=== PATIENT | female | born 1945 | race Two or more races ===

== ENCOUNTER 2019-09-01 14:38 | Emergency (ER) | payer MEDICARE, BC ==
[~2019-09-01] VITALS: Ht 160 cm; Wt 63.5 kg
--- NOTE | 2019-09-01 14:50 | Emergency Room Report ---
History of Present Illness General Chief Complaint: Dizziness Source: Patient Present Illness HPI Is a 73-year-old female who presents after increased dizziness. Has been having increased vertigo sensation worse with movement. Had onset of symptoms 2 days ago. Patient has been able to ambulate earlier in the day. She has been previously having episodes of nausea and vomiting. This had worsened while being examined by physician Dr. Vega. Denies any hematemesis. Denies any recent trauma. Patient been having some abdominal discomfort. Allergies: Coded Allergies: No Known Allergies (Unverified , 09/01/19) Patient History Past Medical History: see triage record Now: No Reviewed Nursing Documentation: PMH: Agreed; PSxH: Agreed Review of Systems All Other Systems: negative except mentioned in HPI Physical Exam Vital Signs Date Time Temp Pulse Resp B/P (MAP) Pulse Ox O2 Delivery O2 Flow Rate FiO2 09/01/19 14:30 98.4 77 16 107/73 (84) 98 Room Air Sp02 EP Interpretation: reviewed, normal General Appearance: normal inspection, well appearing, no apparent distress, alert, GCS 15 Head: atraumatic ENT: normal ENT inspection, hearing grossly normal, normal voice Neck: normal inspection, full range of motion, supple, no bony tend Respiratory: normal inspection, lungs clear, normal breath sounds, no respiratory distress, no retraction, no wheezing Cardiovascular #1: regular rate, rhythm, no edema Gastrointestinal: normal inspection, normal bowel sounds, non tender, soft, no guarding, no hernia Genitourinary: no CVA tenderness Musculoskeletal: normal inspection, back normal, normal range of motion Neurologic: alert, motor strength/tone normal, engraver rubber III-XII nml as tested, distal neuro normal, oriented x3, responsive, speech normal, no pronator, normal inspection, other - Nystagmus Psychiatric: normal inspection, judgement/insight normal, mood/affect normal Medical Decision Making Diagnostic Impression: Primary Impression: Vertigo 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 Differential diagnosis included was not limited to CVA, vertebrobasilar insufficiency, myocardial infarction, benign positional vertigo, labyrinthitis, aspirin overdose among others. Because of complexity of patient's case laboratory tests and imaging studies were ordered.Patient was noted to have improvement in symptoms after medications. CT imaging showed old lacunar infarct of the cerebellum. all laboratory findings and testing was discussed with the patient's family and patient states that she wishes to leave the hospital. Patient does not appear to be in any acute distress and laboratory testing was unremarkable. Patient's patient was advised to return if she had any worsening of condition or other concerns. Patient was advised that her CT she did show some prior cerebellar infarct and that she should have MRI performed. The patient is advised to follow up with primary care doctor in 1-2 days. Patient is advised to return if any worsening condition or if any changes in status that are concerning. This report is dictated with [employer] software which may occasionally lead to discrepancies related to use of this software. Labs Test 09/01/19 14:40 White Blood Count 8.0 K/UL (4.8-10.8) Red Blood Count 4.41 M/UL (4.20-5.40) Hemoglobin 13.5 G/DL (12.0-16.0) Hematocrit 38.8 % (37.0-47.0) Mean Corpuscular Volume 88 FL (80-99) Mean Corpuscular Hemoglobin 30.7 PG (27.0-31.0) Mean Corpuscular Hemoglobin Concent 34.9 G/DL (32.0-36.0) Red Cell Distribution Width 10.4 % (11.6-14.8) Platelet Count 177 K/UL (150-450) Mean Platelet Volume 8.7 FL (6.5-10.1) Neutrophils (%) (Auto) 75.9 % (45.0-75.0) Lymphocytes (%) (Auto) 17.8 % (20.0-45.0) Monocytes (%) (Auto) 5.4 % (1.0-10.0) Eosinophils (%) (Auto) 0.1 % (0.0-3.0) Basophils (%) (Auto) 0.8 % (0.0-2.0) Sodium Level 143 MMOL/L (136-145) Potassium Level 3.7 MMOL/L (3.5-5.1) Chloride Level 105 MMOL/L (98-107) Carbon Dioxide Level 24 MMOL/L (21-32) Anion Gap 14 mmol/L (5-15) Blood Urea Nitrogen 10 mg/dL (7-18) Creatinine 0.7 MG/DL (0.55-1.30) Estimat Glomerular Filtration Rate > 60 mL/min (>60) Glucose Level 144 MG/DL (74-106) Calcium Level 9.2 MG/DL (8.5-10.1) Total Bilirubin 0.8 MG/DL (0.2-1.0) Aspartate Amino Transf (AST/SGOT) 24 U/L (15-37) Alanine Aminotransferase (ALT/SGPT) 33 U/L (12-78) Alkaline Phosphatase 46 U/L (46-116) Troponin I 0.018 ng/mL (0.000-0.056) Total Protein 6.6 G/DL (6.4-8.2) Albumin 3.6 G/DL (3.4-5.0) Globulin 3.0 g/dL Albumin/Globulin Ratio 1.2 (1.0-2.7) Thyroid Stimulating Hormone (TSH) 0.991 uiU/mL (0.358-3.740) Last Vital Signs Date Time Temp Pulse Resp B/P (MAP) Pulse Ox O2 Delivery O2 Flow Rate FiO2 09/01/19 14:30 98.4 77 16 107/73 (84) 98 Room Air Status: improved Disposition: HOME, SELF-CARE Condition: Stable Scripts Meclizine Hcl* (MECLIZINE*) 25 Mg Tablet 25 MG ORAL THREE TIMES A DAY, #20 TAB Prov: Guero Razo MD 09/01/19 Ondansetron Odt* (ZOFRAN ODT*) 4 Mg Tab.rapdis 4 MG BC EVERY 6 HOURS PRN for Nausea & Vomiting, #10 TAB 0 Refills Prov: Guero Razo MD 09/01/19 Guero Razo MD Sep 01, 2019 14:50
[2019-09-01] MEDS ORDERED: Meclizine 25mg tab ORAL ONE (15:00)
[2019-09-01 15:03] LABS: BASOPHILS % (AUTO) 0.8 % (0.0-2.0); EOSINOPHILS % (AUTO) 0.1 % (0.0-3.0); HEMATOCRIT 38.8 % (37.0-47.0); HEMOGLOBIN 13.5 G/DL (12.0-16.0); LYMPHOCYTES % (AUTO) 17.8 % (20.0-45.0); MEAN CORPUSCULAR VOLUME 88 FL (80-99); MONOCYTES % (AUTO) 5.4 % (1.0-10.0); NEUTROPHILS % (AUTO) 75.9 % (45.0-75.0); PLATELET COUNT 177 K/UL (150-450); RED BLOOD COUNT 4.41 M/UL (4.20-5.40); RED CELL DISTRIBUTION WIDTH 10.4 % (11.6-14.8)
[2019-09-01 15:04] VITALS: BP 107/73
--- NOTE | 2019-09-01 15:04 | NUR ---
brought in by rescue from home with complaints of dizziness with nausea no vomiting
--- NOTE | 2019-09-01 15:15 | NUR ---
ED Nurse Note: Pt received from [facility] charge [facility]. pt is resting in bed with family at bedside. No acute distress noted. Will continue to monitor.
[2019-09-01 15:16] LABS: ANION GAP 14 mmol/L (5-15); BLOOD UREA NITROGEN 10 mg/dL (7-18); CALCIUM 9.2 MG/DL (8.5-10.1); CARBON DIOXIDE 24 MMOL/L (21-32); CHLORIDE 105 MMOL/L (98-107); CREATININE 0.7 MG/DL (0.55-1.30); POTASSIUM 3.7 MMOL/L (3.5-5.1); SODIUM 143 MMOL/L (136-145)
[2019-09-01 15:29] LABS: ALANINE AMINOTRANSFERASE 33 U/L (12-78); ALBUMIN 3.6 G/DL (3.4-5.0); ALBUMIN/GLOBULIN RATIO 1.2 (1.0-2.7); ALKALINE PHOSPHATASE 46 U/L (46-116); ASPARTATE AMINO TRANSFERASE 24 U/L (15-37); BILIRUBIN,TOTAL 0.8 MG/DL (0.2-1.0)
--- NOTE | 2019-09-01 15:47 | Diagnostic Imaging Report ---
. Indications: Headache and dizziness Technique: Spiral acquisitions obtained through the brain. Angled axial and coronal 5 x 5 mm slices were reconstructed. Total dose length product 1018 mGycm. CTDI vol(s) 53 mGy. Dose reduction achieved using automated exposure control Comparison: None. Findings: There is very mild age-related enlargement of ventricles and extra axial CSF spaces. No acute intercranial hemorrhage or edema. No mass effect nor midline shift. There is a small old left cerebellar hemispheric cortical infarct demonstrated. Old deep white matter infarct is seen in the left posterior parietal deep white matter. Gan-white differentiation is normal. The mastoids are clear. Size orbits and sinuses are unremarkable. Impression: Mild age-related changes, as described Old lacunar infarcts, as described Negative for acute intracranial bleed or mass effect The CT scanner at [facility] is accredited by the [employer] and the scans are performed using protocols designed to limit radiation exposure to as low as reasonably achievable to attain images of sufficient resolution adequate for diagnostic evaluation.
[2019-09-01] MEDS ORDERED: MECLIZINE HCL25 MG ORAL (16:49)
[2019-09-01] MEDS ORDERED: ONDANSETRON ODT4 MG BC (16:49)
[2019-09-01 17:15] VITALS: BP 110/82
--- NOTE | 2019-09-01 17:15 | NUR ---
ER DISCHARGE NOTE: Patient is cleared to be discharged per ERMD, pt is aox4, on room air, with stable vital signs. pt was given dc and prescription instructions, pt was able to verbalize understanding, pt id band and iv site removed without complications. pt is able to ambulate with steady gait. pt took all belongings.
--- NOTE | 2019-09-01 17:22 | Diagnostic Imaging Report ---
Indication: Shortness of breath Technique: One view of the chest Comparison: none Findings: Inspiration is suboptimal. Lungs and pleural spaces are clear. The heart size is normal. The aorta is tortuous Impression: Hypoventilatory exam. No acute process
== END 2019-09-01 17:15 | disposition home or self-care (01) ==
LOC: EDBD 14:38 → EMR 17:15
DX: R42 Dizziness and giddiness (principal); Z86.73 Personal history of transient ischemic attack (TIA), and cerebral infarction without residual deficits
CPT/HCPCS: 36415; 70450; 71045; 80053; 84443; 84484; 85025; 93005; 96374; 99284; J2405; J7040